=== PATIENT | male | born 1990 | race Caucasian/White ===

== ENCOUNTER 2016-08-24 16:23 | Emergency (ER) ==
[2016-08-24 16:29] VITALS: BMI 36.2
--- NOTE | 2016-08-24 16:54 | ED.PDOC ---
General ED Provider: Dr. EVELINE GUILLEN JR Chief Complaint: Fever Stated Complaint: SB onset lower back pain then developed headache with body aches--generalized aches--had plyii280.9 at home[ End ] 101.9 127 20 97% 119/74 02/22 feels might have uti --has had in past --sx similar[ End ] Time Seen by Physician: 16:54 Mode of Arrival: Walk-In Information Source: Patient Exam Limitations: No limitations Primary Care Provider: FATEMEH RECIO Nursing and Triage Documentation Reviewed and Agree: No Review of Systems - Review Of Systems Constitutional: Reports: Malaise, Weakness Eyes: Reports: No symptoms Ears, Nose, Mouth, Throat: Reports: No symptoms Respiratory: Reports: No symptoms Cardiac: Reports: No symptoms GI: Reports: Abdominal pain : Reports: Burning, Dysuria, Frequency, Flank pain, Pain, Urgency Musculoskeletal: Reports: Muscle pain Skin: Reports: No symptoms Neurological: Reports: Anxiety Endocrine: Reports: No symptoms Hematologic/Lymphatic: Reports: No symptoms All Other Systems: Other Past Medical History - Past Medical History Endocrine: Reports: None Cardiovascular: Reports: None Respiratory: Reports: None Hematological: Reports: None Gastrointestinal: Reports: None Genitourinary: Reports: None Neuro/Psych: Reports: Anxiety Musculoskeletal: Reports: None Cancer: Reports: None Other Pertinent Past Medical History: smoker - Surgical History General Surgical History: Reports: None - Family History Family History: Reports: None - Social History Smoking Status: Current every day smoker, Light tobacco smoker Hx Substance Use: No Alcohol Screening: None Physical Exam - Physical Exam Appearance: Ill-appearing, Obese Pain Distress: Moderate Eyes: KYARA, EOMI, Conjunctiva clear ENT: Ears normal Neck: Supple Respiratory: Airway patent, Breath sounds clear, Breath sounds equal, Respirations nonlabored Cardiovascular: RRR, Pulses normal, No rub, No murmur GI/: Soft, No masses, Bowel sounds normal, No Organomegaly, Tender Musculoskeletal: Normal strength, ROM intact, No edema, No calf tenderness Skin: Warm, Dry, Normal color Neurological: Sensation intact, Motor intact, Reflexes intact, Cranial nerves intact, Alert, Oriented Psychiatric: Affect appropriate, Mood appropriate Critical Care Note - Critical Care Note Total Time (mins): 5 Course - Course Hematology/Chemistry: 08/24/16 16:50 08/24/16 16:50 Orders, Labs, Meds: Lab Review 08/24/16 08/24/16 16:40 16:50 WBC 15.22 H RBC 5.37 Hgb 14.4 Hct 44.3 MCV 82.5 MCH 26.8 L MCHC 32.5 RDW Coeff of Zan 14.7 Plt Count 254 Immature Gran % (Auto) 0.5 Neut % (Auto) 83.4 Lymph % (Auto) 7.6 L [place] % (Auto) 8.1 Eos % (Auto) 0.1 Baso % (Auto) 0.3 Immature Gran # (Auto) 0.1 Neut # 12.7 H Lymph # 1.2 [place] # 1.2 Eos # 0.0 Baso # 0.1 Sodium 137 Potassium 3.7 Chloride 104 Carbon Dioxide 24 Anion Gap 12.7 BUN 9 Creatinine 1.10 Estimated GFR (MDRD) 80.00 BUN/Creatinine Ratio 8.18 Glucose 96 Lactic Acid 7.5 Calcium 9.3 Total Bilirubin 0.58 AST 13 L ALT 17 Alkaline Phosphatase 77 Total Protein 8.0 Albumin 3.1 L Globulin 4.9 Albumin/Globulin Ratio 0.63 Procalcitonin 0.39 Urine Color Yellow Urine Clarity Slightly Urine pH 6.5 Ur Specific Irons 1.015 Urine Protein 2+ Urine Glucose (UA) Negative Urine Ketones Negative Urine Blood 1+ Urine Nitrite Positive Urine Bilirubin Negative Urine Urobilinogen 0.2 Ur Leukocyte Esterase 2+ Urine Microscopic RBC 5-10 Urine Microscopic WBC 20-30 Ur Squamous Epith Cells 2-5 Urine Bacteria 2+ Urine Test Negative Orders Category Date Time Status IV ACCESS ONCE CARE 08/24/16 16:38 Active ED FLOOR NURSE APPLIED .ONCE EMERGENCY 08/24/16 16:38 Active ED IV/MEDIPORT/POWERPORT .ONCE EMERGENCY 08/24/16 16:38 Active ED VITAL SIGNS Q1HR EMERGENCY 08/24/16 16:38 Active BLOOD CULTURE Stat LAB 08/24/16 16:50 Received CBC W/ AUTO DIFF Stat LAB 08/24/16 16:50 Completed COMPREHENSIVE METABOLIC PANEL Stat LAB 08/24/16 16:50 Completed LACTIC ACID Stat LAB 08/24/16 16:50 Completed PROCALCITONIN Stat LAB 08/24/16 16:50 Completed URINALYSIS C & S IF INDICATED Stat LAB 08/24/16 16:40 Completed URINE CULTURE Stat LAB 08/24/16 17:03 Received URINE Stat LAB 08/24/16 16:40 Completed 0.9 % Sodium Chloride [Saline Flush] MEDS 08/24/16 16:38 Active 1 syr IVF PRN PRN Levofloxacin [Levaquin] MEDS 08/24/16 18:29 Discontinued 500 mg PO ONCE STA Medications Generic Name Dose Route Start Last Admin Trade Name Freq PRN Reason Stop Dose Admin Sodium Chloride 1 syr 08/24/16 16:38 Saline Flush IVF PRN PRN To flush IV Discontinued Medications Generic Name Dose Route Start Last Admin Trade Name Freq PRN Reason Stop Dose Admin Levofloxacin 500 mg 08/24/16 18:29 08/24/16 18:38 Levaquin PO 08/24/16 18:30 500 mg ONCE STA Administration Vital Signs: Temp Pulse Resp BP Pulse Ox 08/24/16 18:01 101 F H 129 H 16 109/70 98 08/24/16 16:23 101.9 F H 127 H 20 119/74 97 Departure - Departure Time of Disposition: 18:37 Disposition: HOME SELF-CARE Discharge Problem: UTI (urinary tract infection) Instructions: Urinary Tract Infection in Women (ED) Condition: Good Pt referred to PMD for follow-up: Yes Additional Instructions: follow up with PMD change antibiotics if not resolving in 2-3 days expect to be improved by next dose of antibiotic Levaquin 500 mg daily for seven days return if nausea, vomiting, increased fever Prescriptions: Levofloxacin [Levaquin] 500 mg PO QDAC #7 tablet Allergies/Adverse Reactions: Allergies No Known Allergies Allergy (Unverified 08/24/16 16:31) Home Medications: Ambulatory Orders Citalopram Hydrobromide [Citalopram HBr] 40 mg PO DAILY 08/24/16 Clonazepam 2 mg PO DIRECTED 08/24/16 Levofloxacin [Levaquin] 500 mg PO QDAC #7 tablet 08/24/16 Metformin HCl [Metformin HCl ER] 500 mg PO BID 08/24/16
[2016-08-24 16:56] LABS: BASOPHILS # (AUTO) 0.1 K/uL (0-0.2); BASOPHILS % (AUTO) 0.3 % (0.0-3.0); EOSINOPHILS % (AUTO) 0.1 % (0.0-7.0); HEMATOCRIT 44.3 % (42.0-52.0); HEMOGLOBIN 14.4 g/dl (14.0-18.0); IMMATURE GRANULOCYTE % (AUTO) 0.5 % (0.0-5.0); LYMPHOCYTES # (AUTO) 1.2 K/uL (0.60-3.4); LYMPHOCYTES % (AUTO) 7.6 (10.0-50.0); MEAN CORPUSCULAR HEMOGLOBIN 26.8 pg (27.0-31.0); MEAN CORPUSCULAR HGB CONC 32.5 (31.8-35.4); MEAN CORPUSCULAR VOLUME 82.5 fl (80.0-94.0); MONOCYTES # (AUTO) 1.2 K/uL (0.4-2.0); MONOCYTES % (AUTO) 8.1 (0-10); NEUTROPHILS # (AUTO) 12.7 K/ul (2.0-6.9); NEUTROPHILS % (AUTO) 83.4; PLATELET COUNT 254 10^3/uL (140-440); RED BLOOD COUNT 5.37 10^6/ul (4.70-6.10); WHITE BLOOD COUNT 15.22 K/ul (4.2-10.2)
[2016-08-24 16:59] LABS: BILIRUBIN,URINE Negative (NEGATIVE); KETONES,URINE Negative (NEGATIVE); LEUKOCYTE ESTERASE ,URINE 2+ (NEGATIVE); NITRITE,URINE Positive (NEGATIVE); PH,URINE 6.5 (5-9); PROTEIN,URINE 2+ (NEGATIVE); URINE PREGNANCY INTERNAL QC INTERNAL QC VALID; URINE, BLOOD 1+ (NEGATIVE)
[2016-08-24 17:00] LABS: ADD URINE MICROSCOPIC YES
[2016-08-24 17:02] LABS: BACTERIA,URINE 2+ (NOT PRESENT)
[2016-08-24 17:12] LABS: ALBUMIN 3.1 g/dL (3.4-5.0); ALBUMIN/GLOBULIN RATIO 0.63; ANION GAP 12.7; BILIRUBIN,TOTAL 0.58 mg/dL (0.00-1.20); BUN/CREATININE RATIO 8.18; CALCIUM 9.3 mg/dL (8.2-10.2); CREATININE 1.1 mg/dL (0.60-1.10); POTASSIUM 3.7 mmol/L (3.5-5.1)
[2016-08-24 18:02] VITALS: BP 109/70; TEMP 101
[2016-08-24] MEDS ORDERED: LEVAQUIN PO STA (18:29)
== END 2016-08-24 18:53 | disposition home or self-care (01) ==
LOC: ED 16:23 → EDSEX 16:23 → ED 18:53
DX: N39.0 Urinary tract infection, site not specified (principal); B96.20 Unspecified Escherichia coli [E. coli] as the cause of diseases classified elsewhere; Z16.11 Resistance to penicillins; F17.210 Nicotine dependence, cigarettes, uncomplicated
CPT/HCPCS: 36415; 80053; 81001; 81025; 83605; 84145; 85025; 87040; 87086; 87186; 99283